=== PATIENT | female | born 1950 | race Caucasian/White ===

== ENCOUNTER → 2021-09-29 | Outpatient (CLI) | payer OTHER ==
[~2021-09-29] MED LIST: BIOTIN PLUS KE1 EACH PO; CALCIUM500 MG PO; COLLAGEN PEPTIDE PO; COLLAGEN PLUS1 EACH PO; HYDROCHLOROTH12.5 M2 PO; LEVOTHYROXINE50 MC1 PO; MAGNESIUM500 MG PO; MELATONIN10 M3 PO; METFORMIN HCL500 M3 PO; NORTRIPTYLINE H10 M2 PO; POTASSIUM CHLORIDE PO; POTASSIUM20 MEQ/15 PO; PRENATAL TABLE1 EACH PO; RIZATRIPTAN10 MG PO; SIMVASTATIN40 MG PO; SODIUM CHLORIDE PO; STRESS FORMULA1 EAC4 PO; TOPIRAMATE50 MG PO; TRETINOIN; VITAMIN D350 MC3 PO; [UNRECOGNIZED DRUG - OTHER]
[2021-09-29 13:05] LABS: HEMATOCRIT 40.3 % (37.0-47.0); HEMOGLOBIN 13.3 gm/dL (12.0-15.0); MCH 28.8 pg (26.0-34.0); MCV 87.3 fL (80.0-100.0); RBC 4.62 mil/uL (4.20-5.00); RDW 14.2 % (10.5-14.5)
[2021-09-29 13:13] LABS: ALBUMIN 3.6 g/dL (3.4-5.0); CALCIUM 8.9 mg/dL (8.5-10.1); POTASSIUM 3.9 mmol/L (3.5-5.1)
[2021-09-29 13:20] LABS: INR 0.93; PROTIME 10.2 Seconds (10.5-12.1)
[2021-09-29 13:28] LABS: URINE BILIRUBIN NEGATIVE (Negative); URINE BLOOD NEGATIVE (Negative); URINE CLARITY CLEAR; URINE COLOR YELLOW; URINE GLUCOSE-RANDOM* NEGATIVE (Negative); URINE KETONES NEGATIVE (Negative); URINE LEUKOCYTES-REFLEX NEGATIVE (Negative); URINE NITRITE-REFLEX NEGATIVE (Negative); URINE PROTEIN (DIPSTICK) NEGATIVE (Negative); URINE SPECIFIC GRAVITY 1.025 (1.005-1.035); URINE UROBILINOGEN 0.2 E.U./dl (0.2-1.0)
== END ==
LOC: PAC 11:58
PROVIDERS: ATTEND Orthopaedic Surgery
DX: M17.11 Unilateral primary osteoarthritis, right knee (principal)

== ENCOUNTER 2021-10-07 10:28 | Observation (INO) | payer OTHER ==
[~2021-10-07] VITALS: Ht 177.8 cm; Wt 76.7 kg
[2021-10-07 12:37] VITALS: BP 115/65
[2021-10-07 15:44] VITALS: BP 104/56
--- NOTE | 2021-10-07 16:00 | NUR ---
ASSUMED PT CARE AT 1525 FROM PACU. PT IS ALERT & ORIENTED X4. PT HAS IV SITE ON RAC. PT IS ON ROOM AIR. PT HAS BILATERAL [facility], POLAR CARE, RADHA DRESSING ON R KNEE, SCD. LAST BM WAS TODAY. FINISHED ADMISSION THIS AFTERNOON. PT BROTHER AT THE BEDSIDE. PT ON THE BED, BED ON THE LOWEST POSITION, SIDE RAILS UP, CALL LIGHT WITHIN REACH. WILL CONTINUE TO MONITOR PT. FOLLOW POC.
[2021-10-07 19:54] VITALS: BP 101/63
--- NOTE | 2021-10-08 02:56 | NUR ---
PT IS A/O X4 AND IS UP WITH ASSISTANCE TO THE BSC. ROOM AIR. VSS AFEBRILE. MEDICATIONS GIVEN WHOLE WITH WATER. NO BM THIS SHIFT. SCHEDULED STOOL SOFTNER PROVIDED. C/O PAIN TO RIGHT KNEE. PRN AND SCHEDULED PAIN MEDICATION GIVEN DIRECTED. DRSG TO RIGHT KNEE IS C/D/I. POLAR PACK, SCDS, AND FARHAT HOSE IN PLACE. PT IS PLEASANT AND COOPERATIVE. FALL PRECAUTIONS IN PLACE, CALL LIGHT IS WITHIN REACH. PT IS PROGRESSING TOWARDS PLAN OF CARE DC GOALS.
[2021-10-08 04:36] VITALS: BP 94/50
[2021-10-08 07:25] VITALS: BP 109/63
--- NOTE | 2021-10-08 10:22 | NUR ---
ASSUMED PT CARE THIS AM. PT IS ALERT & ORIENTED X4. PT HAS IV SITE ON RAC 20 GAUGE SALINE LOCKED. PT IS UP WITH ASSIST X1 WITH GAITBELT AND WALKER. PHYSICAL THERAPY WAS WORKING WITH PT THIS AM AND WILL BE WORKING AGAIN THIS AFTERNOON. PT HAS GAYLE DELAROSA, RADHA ROCHEG ON R KNEE, [facility] THIGH HIGH BILATERAL. PT IS ON ROOM AIR. PT IS CURRENTLY SITTING ON THE CHAIR WATCHING TV. WILL CONTINUE TO MONITOR PT. FOLLOW POC.
--- NOTE | 2021-10-08 10:47 | O ---
[facility] [place] [address] OPERATIVE REPORT Name: GRACE TOBIN Room #: 439-P [facility] MGreg#: [id number] Admission: 10/07/21 Attend Phys: Bishop Bryan MD Discharge: Date of : 52 Report #: [id number] THIS REPORT FOR: cc: RIMA MASSEY Physician not on staff Bishop Bryan MD ~ DATE OF SERVICE: 10/07/2021 DATE OF SURGERY: 10/07/2021. PREOPERATIVE DIAGNOSIS: Right knee osteoarthritis. POSTOPERATIVE DIAGNOSIS: Right knee osteoarthritis. PROCEDURE: Right total knee arthroplasty using Navio robotic assistance. SURGEON: Bishop Bryan M.D. [employer] MAT INSPECTOR: Christie Jensen PA-C. ANESTHESIA: LMA with adductor canal block. IMPLANTS: [employer] size 3 Journey II BCS cobalt chrome femur, size 3 tibia, size 10 constrained polyethylene and size 32 patella. TOURNIQUET TIME: 48 minutes. COMPLICATIONS: None. SPECIMENS: None. CONDITION UPON LEAVING THE OR: Stable. INDICATIONS FOR PROCEDURE: The patient is a 70-year-old female with severe right knee valgus osteoarthritis. She had failed conservative measures for this and after discussion with her, she elected for right total knee arthroplasty. DESCRIPTION OF PROCEDURE: Risks, benefits, alternatives, complications were discussed in detail with the patient including but not limited to risk of anesthesia, risk of damage to nerves, arteries, blood vessels, risk for infection, bleeding, risk for continued knee pain and need for reoperation. Informed consent was obtained from the patient. Right knee was appropriately marked in the preoperative holding area. IV Ancef was given for preoperative antibiotics. She was brought to the operating room and placed in the supine position on the operating room table. LMA anesthesia was induced without complication. Tourniquet was placed on the right thigh. Right lower extremity [address] [address] OPERATIVE REPORT Name: GRACE TOBIN Room #: 439-P [facility] [place]#: [id number] Admission: 10/07/21 Attend Phys: Bishop Bryan MD Discharge: Date of : 52 Report #: [id number] was prepped and draped in normal sterile fashion. Timeout was performed properly identifying the patient and procedure as well as the instrumentation and implants. All in the operating room in agreement. Right lower extremity was exsanguinated and tourniquet inflated. Tourniquet time was 48 minutes. Standard midline approach to the knee was made with 10 blade through the skin. Dissection was taken down sharply to the fascia and deep flaps were developed medially and laterally. Fresh 10 blade was used to make a medial parapatellar arthrotomy and the knee was inspected. There was severe lateral compartment osteoarthritis with moderate medial and patellofemoral compartment osteoarthritis. ACL and PCL were removed sharply. Reference pins were placed in the femur and the tibia. The knee was digitally mapped using the 4INFO robotic system. Intraoperative plan was made. We sized the size 3 femur, the size 3 tibia and a 10 spacer after acceptance of the intraoperative plan, the distal femoral cut was made with Navio bur. Distal femoral cutting block was pinned in place and chamfer cuts were made. Attention was turned to the tibia. Remainder of the menisci removed with Bovie cautery. Tibial resection guide was pinned in place using Navio for placement and tibial resection was made. Flexion and extension gaps were checked and found to have good balance in flexion and extension both medially and laterally. Tibia sized, found to be a size 3. Size 3 tibial trial was placed, pinned and punched. Size 3 femoral trial was placed and the box cut was made. This was then trialed with a size 9 and then a size 10 polyethylene. Size 10 polyethylene demonstrated 1-2 mm of laxity laterally throughout range of motion of the knee. Medially, she did demonstrate up to 3 mm of laxity. It was felt we can make up for this with a constrained implant, 9 mm of bone was resected from the posterior surface of the patella and a size 32 patellar trial button was placed. Knee was taken through range of motion, found to be stable, found to have good patellar tracking. Trial components were removed. Bony ends were thoroughly irrigated with normal saline. A final size 3 tibia, size 3 Journey II BCS cobalt chrome femur and a size 32 patella were cemented in place using standard cementation techniques. While the cement cured, a periarticular injection consisting of morphine, ropivacaine, epinephrine, Toradol was placed around the knee joint capsule. After the cement cured, tourniquet was deflated. Hemostasis was obtained with Bovie cautery. A final size 10 constrained polyethylene was placed. A gram of vancomycin was placed deep in the joint. The fascia was closed with 0 Vicryl. Skin was closed with 2-0 Vicryl, skin staple and a RADHA dressing was applied. The patient tolerated this procedure well and went to recovery room under care of anesthesia postoperatively. <ELECTRONICALLY SIGNED> By: Bishop Bryan MD 10/08/21 [id number] Bishop Bryan MD /nt
--- NOTE | 2021-10-08 14:42 | NUR ---
RIGHT TKA NAVIO ASSIST, PATIENT HAVING TROUBLE DOING STRAIGHT LEG RAISE TODAY. PLAN TO KEEP OVERNIGHT AND IF CLEARED BY PT + PAIN UNDER CONTROL WILL DC EARLY TOMORROW, SHE HAS [address] HOME[address] DISCUSSED WITH PT AND HE WILL SEE HER FIRST THING TUESDAY AM. SHE AGREES WITH PLAN Per Ortho. Cm visited with dulce. She plans on working with therapy 1st thing tomorrow, since she has long drive home. Going to outpatient therapy at the hospital close to her home on tue10/13/21. She lives alone but going to be staying with friends for 10 day at least. No DME needs.
[2021-10-08 16:00] VITALS: BP 94/56
[2021-10-08 21:15] VITALS: BP 107/63
--- NOTE | 2021-10-09 04:04 | NUR ---
PT IS A/O X4 AND IS UP WITH ASSISTANCE TO THE BR USING WALKER AND GB. VSS. ROOM AIR. MEDICATIONS GIVEN WHOLE WITH WATER. PT C/O RIGHT KNEE PAIN. PRN PAIN MEDICATION GIVEN DIRECTED. VOIDS PER TOILET. NO BM NOTED THIS SHIFT. FALL PRECUATIONS IN PLACE. DRSG TO RIGHT KNEE IS C/D/I. POLAR PACK, SCDS, AND FARHAT HOSE IN PLACE. CALL LIGHT IS WITHIN REACH. PT IS PROGRESSING TOWARDS PLAN OF CARE DC GOALS.
[2021-10-09 07:26] VITALS: BP 106/58
[2021-10-09 11:09] VITALS: BP 106/58
--- NOTE | 2021-10-09 11:10 | NUR ---
Anticipate dc home today. Going to stay with friends and start outpatient therapy per her request.
--- NOTE | 2021-10-09 11:43 | NUR ---
PT INSTRUCTED ON DISCHARGE INFORMATION, RADHA DRESSING TO RIGHT KNEE, AND POLAR PACK. DISCHARGE INSTRUCTIONS GIVEN AND QUESTIONS ANSWERED. PT ITEMS RETURNED, IV REMOVED, POLAR PACK, IS, AND ICE PACKS GIVEN TO PATIENT.
--- NOTE | 2021-10-09 12:18 | NUR ---
Tommy shetty, in room with patient to assist pt to car for discharge. all needs were met prior to discharge.
== END 2021-10-09 12:21 | disposition home health service (06) ==
LOC: OR → PRE 10:34 → OR 13:49 → 4S 14:52 → OR 14:53 → 4S 10-09 12:21
PROVIDERS: ADMIT Orthopaedic Surgery; ATTEND Orthopaedic Surgery
DX: M17.11 Unilateral primary osteoarthritis, right knee (principal); Z20.822 Contact with and (suspected) exposure to COVID-19; Z79.899 Other long term (current) drug therapy
CPT/HCPCS: 10102; 50010; 50101; 50415; 50954; 51130; 51225; 51320; 51412; 52001; 52282; 53000; 53078; 56527; 56528; 57095; 57103; 57110; 57127; 57180; 58239; 62110; 62900; 64043; 65060; 70005